=== PATIENT | female | born 1970 | race Caucasian/White ===

== ENCOUNTER 2019-11-03 19:11 | Emergency (ER) | payer OTHER ==
[~2019-11-03] VITALS: Ht 157.5 cm; Wt 92.7 kg
[2019-11-03 19:19] VITALS: TEMP 98.1
[2019-11-03] MEDS ORDERED: LEVOXYL0.025 MG PO (19:52)
[2019-11-03] MEDS ORDERED: ZOLOFT 100MG100 MG PO (19:52)
[2019-11-03] MEDS ORDERED: NEXIUM 40MG40 MG PO (19:52)
[2019-11-03] MEDS ORDERED: ALDACTONE 100M100 MG PO (19:53)
[2019-11-03 20:05] LABS: BASO % 0.6 % (0.0-2.0); EOS # 0.1 (0.0-0.7); GRAN # 3.9 (1.4-6.5); GRAN % 55.4 % (42.2-75.2); HEMATOCRIT 38.4 % (37.0-47.0); HEMOGLOBIN 12.5 g/dl (12.5-16.0); LYMPH # 2.5 (1.2-3.4); LYMPH % 34.8 % (20.0-51.0); MEAN CELL VOLUME 96 fl (80.0-100.0); MEAN CORPUSCULAR HEMOGLOBIN 31 pg (27.0-31.0); MEAN CORPUSCULAR HGB CONC 33 g/dl (33.0-37.0); MEAN PLATELET VOLUME 11.2 fl (7.4-10.4); MONO # 0.6 (0.1-0.6); MONO % 7.9 % (1.7-9.3); PLATELET COUNT 266 K/mm3 (130-400); RED BLOOD COUNT 3.99 M/mm3 (4.10-5.30); REDCELL DISTRIBUTION WIDTH-CV 13.7 % (11.5-14.5)
[2019-11-03 20:06] LABS: INR 0.9 (0.8-3.0); PROTHROMBIN TIME 10.2 SECONDS (9.7-12.8)
[2019-11-03 20:16] LABS: ALANINE AMINOTRANSFERASE 16 U/L (4-34); ALBUMIN 4.1 gm/dL (3.5-5.0); ALKALINE PHOSPHATASE 84 U/L (50-136); ANION GAP 9 mmol/L (7-16); AST,SGOT 19 U/L (15-37); BILIRUBIN,TOTAL 0.3 mg/dL (0.0-1.0); BLOOD UREA NITROGEN 16 mg/dL (7-17); CALCIUM 9.2 mg/dL (8.4-10.2); CARBON DIOXIDE 23 mmol/L (22-30); CHLORIDE 107 mmol/L (98-107); CREATININE, serum 0.72 (0.52-1.25); GLUCOSE 105 mg/dL (74-106); LIPASE 91 U/L (23-300); POTASSIUM 3.9 mmol/L (3.4-5.0); SODIUM 139 mmol/L (137-145); TOTAL PROTEIN 7.2 gm/dL (6.4-8.2)
[2019-11-03 20:37] LABS: TROPONIN-I < 0.012 ng/mL (0.000-0.035)
[2019-11-03] MEDS ORDERED: NORCO 325 MG-51 TAB PO (20:59)
[2019-11-03 21:17] VITALS: BP 134/80; PULSE 79
== END 2019-11-03 21:11 | disposition home or self-care (01) ==
LOC: COL.ER 19:11
PROVIDERS: Emergency Medicine
DX: M94.0 Chondrocostal junction syndrome [Tietze] (principal)
CPT/HCPCS: J1170; J1885; J7030

== ENCOUNTER → 2020-04-17 | Outpatient (CLI) | payer OTHER ==
[~2020-04-17] MED LIST: ALDACTONE 100M100 MG PO; LEVOXYL0.025 MG PO; NEXIUM 40MG40 MG PO; NORCO 325 MG-51 TAB PO; ZOLOFT 100MG100 MG PO
== END ==
LOC: COL.RAD 06:56
DX: M51.36 Other intervertebral disc degeneration, lumbar region (principal); M47.816 Spondylosis without myelopathy or radiculopathy, lumbar region; M47.817 Spondylosis without myelopathy or radiculopathy, lumbosacral region

== ENCOUNTER 2024-03-08 12:15 | Outpatient (CLI) | payer OTHER ==
[~2024-03-08] VITALS: Ht 154.9 cm; Wt 99.5 kg
[~2024-03-08 12:15] MED LIST changes: +CYMBALTA 60MG60 MG PO
[2024-03-08] MEDS ORDERED: PEPCID 20MG TAB20 MG PO (12:37)
[2024-03-08] MEDS ORDERED: FLONASEALLERGY NS (12:38)
[2024-03-08] MEDS ORDERED: INDERAL60 MG PO (12:39)
[2024-03-08] MEDS ORDERED: MAXALT10 MG (12:40)
[2024-03-08] MEDS ORDERED: SYNTHROID0.125 MG/T PO (12:41)
[2024-03-08] MEDS ORDERED: ZANAFLEX 4MG TAB4 MG PO (12:41)
[2024-03-08] MEDS ORDERED: TROKEND50 (12:42)
[2024-03-08 12:43] VITALS: BP 132/82; PULSE 70; TEMP 98.1
[2024-03-08 13:53] VITALS: BP 136/75; PULSE 66
[2024-03-08 14:10] VITALS: BP 136/75; PULSE 63
[2024-03-08 14:25] VITALS: BP 136/86; PULSE 62
[2024-03-08 14:50] VITALS: BP 140/80; PULSE 66
[2024-03-08 14:55] LABS: CSF APPEARANCE CLEAR; CSF COLOR COLORLESS
[2024-03-08 15:15] LABS: GLUCOSE,CSF 68 mg/dL (40-70); TOTAL PROTEIN,CSF 32 mg/dL (15-45)
[2024-03-08 15:36] LABS: CSF MONONUCLEAR 100 % (70-100); CSF POLYMORPHONUCLEAR 0 % (0-6); CSF RBC < 1 /mm3 (0-0)
[2024-03-09 01:00] LABS: LYME DISEASE ANTIBODIES Negative (Negative)
== END 2024-03-08 14:55 | disposition home or self-care (01) ==
LOC: COL.RAD 12:15
PROVIDERS: Nurse Practitioner
DX: G43.109 Migraine with aura, not intractable, without status migrainosus (principal); R90.89 Other abnormal findings on diagnostic imaging of central nervous system